=== PATIENT | male | born 1990 | race African-American/Black ===

== ENCOUNTER 2022-03-24 11:29 | Inpatient (IN) | payer MEDICAID ==
[2022-03-24] VITALS (19 sets, daily range): BP systolic 90–121; BP diastolic 50–83
[~2022-03-24] VITALS: Ht 165.1 cm; Wt 61.0 kg
[2022-03-24 12:41] LABS: CHLORIDE 110 mEq/L (98-107)
[2022-03-24 12:48] LABS: BASOPHILS % 0.4 % (0.0-2.0); EOSINOPHILS % 2.6 % (0.0-5.0); MEAN CORPUSCULAR HEMOGLOBIN 29.2 pg (28.0-32.0); MEAN PLATELET VOLUME 8.4 fl (7.4-10.4); MONOCYTES % 6.8 % (2.0-8.0); NEUTROPHILS % 77.2 % (40.0-76.0); PLATELET 221 x1000/uL (130-400); RED BLOOD CELL COUNT 7.25 mill/uL (4.7-6.1); RED CELL DISTRIBUTION WIDTH 16.5 % (11.6-14.6)
[2022-03-24 12:52] LABS: HEMATOCRIT. 66.7 % (42.0-52.0); HEMOGLOBIN. 21.2 g/dL (14.0-18.0)
[2022-03-24 13:14] LABS: ETHANOL BLOOD 190 mg/dL
[2022-03-24 13:41] LABS: BG BASE EXCESS -4.2 mmol/L (-2.0-2.0); BG CARBOXYHEMOGLOBIN 0.4 % (0.5-1.5); BG DEOXYHEMOGLOBIN 5.6 % (0.0-5.0); BG FRACTION INSPIRED OXYGEN 80; BG HCO3 ACT 21.4 mmol/L (22.0-26.0); BG METHEMOGLOBIN 0.6 % (0.0-1.5); BG OXYGEN SATURATION 94.3 % (92.0-98.5); BG OXYHEMOGLOBIN 93.4 % (94.0-97.0); BG PCO2 41.2 mmHg (35.0-45.0); BG PH 7.333 (7.350-7.450); BG PO2 81.3 mmHg (75.0-100.0); BG SAMPLE SITE RIGHT BRACHIAL; BG TOTAL HEMOGLOBIN 19.6 g/dL (12.0-18.0); BG TOTAL RESPIRATORY RATE 35 b/min; BG VENT MODE MASK - BIPAP
[2022-03-24] MEDS ORDERED: IOHEXOL-350 100 ML BOTTLE ONE (14:16)
[2022-03-24] MEDS ORDERED: AZITHROMYCIN 500MG/250ML 250 ML IV ONE (15:15)
[2022-03-24] MEDS ORDERED: CHLORDIAZEPOXIDE 25MG CAPSULE PO ONE (15:15)
[2022-03-24] MEDS ORDERED: CEFTRIAXONE 1 G PREMIX 50 ML IV ONE (15:15)
[2022-03-24] MEDS ORDERED: MORPHINE SULFATE 2 MG/ML CPJ (NOT FOR IM USE) IV PRN (19:30)
[2022-03-24] MEDS ORDERED: DIPHENHYDRAMINE 50MG/ML VIAL IV PRN (19:30)
[2022-03-24] MEDS ORDERED: ALBUTEROL 6.7GM HFA INHALER ORI PRN (19:30)
[2022-03-24] MEDS ORDERED: LORAZEPAM 2MG/ML CPJ IV PRN (19:30)
[2022-03-24] MEDS ORDERED: GUAIFENESIN 200MG/10ML SUGAR FREE UDC PO PRN (19:30)
[2022-03-24] MEDS ORDERED: HYDROCODONE/ACETAMINOPHEN 5/325MG TABLET PO PRN (19:30)
[2022-03-24] MEDS ORDERED: DOCUSATE SODIUM 100MG CAPSULE PO PRN (19:30)
[2022-03-24] MEDS ORDERED: CLONIDINE 0.1MG TABLET PO PRN (19:30)
[2022-03-24] MEDS ORDERED: ALBUTEROL (0.083%) 2.5MG/3ML NEB HHN PRN (19:30)
[2022-03-24] MEDS ORDERED: ACETAMINOPHEN 325MG TABLET PO PRN (19:30)
[2022-03-24] MEDS ORDERED: MAGNESIUM/ALUMINUM HYDROXIDE/SIMETHICONE 30ML UDC PO PRN (19:30)
[2022-03-24] MEDS: ENOXAPARIN 40MG/0.4ML SYR SUBCUT SCH (20:00)
[2022-03-24] MEDS: ONDANSETRON HCL 4MG/2ML INJ IV PRN (20:32)
[2022-03-24 21:23] LABS: HEMATOCRIT. 53.2 % (42.0-52.0); MEAN CORPUSCULAR HEMOGLOBIN 29.5 pg (28.0-32.0); MEAN CORPUSCULAR VOLUME 92.3 fL (80.0-94.0); MEAN PLATELET VOLUME 8.3 fl (7.4-10.4); PLATELET 198 x1000/uL (130-400); RED BLOOD CELL COUNT 5.76 mill/uL (4.7-6.1); RED CELL DISTRIBUTION WIDTH 15.9 % (11.6-14.6)
[2022-03-24 21:58] LABS: PLATELET ESTIMATE NORMAL
[2022-03-24] MEDS ORDERED: SODIUM CHLORIDE 0.9% INJ 3ML FLUSH IVF SCH (22:00)
[2022-03-24] MEDS ORDERED: RIVA10TA PO (22:20)
[2022-03-25] VITALS (47 sets, daily range): BP systolic 88–142; BP diastolic 39–96
[2022-03-25] MEDS: ONDANSETRON HCL 4MG/2ML INJ IV PRN ×2 (02:45→12:57)
[2022-03-25 04:27] LABS: BASOPHILS % 0.4 % (0.0-2.0); EOSINOPHILS % 0.7 % (0.0-5.0); HEMATOCRIT. 50.3 % (42.0-52.0); HEMOGLOBIN. 16.6 g/dL (14.0-18.0); LYMPHOCYTES % 7.4 % (20.0-50.0); MEAN CORPUSCULAR HEMOGLOBIN 29.7 pg (28.0-32.0); MEAN CORPUSCULAR VOLUME 90.3 fL (80.0-94.0); MONOCYTES % 8.5 % (2.0-8.0); PLATELET 179 x1000/uL (130-400); RED BLOOD CELL COUNT 5.57 mill/uL (4.7-6.1); RED CELL DISTRIBUTION WIDTH 15.6 % (11.6-14.6)
[2022-03-25 04:36] LABS: CHLORIDE 107 mEq/L (98-107)
[2022-03-25] MEDS ORDERED: CEFTRIAXONE 1 G PREMIX 50 ML IV SCH (09:00)
[2022-03-25] MEDS: AZITHROMYCIN 500 MG in DEXT 5% WATER 250 ML IV SCH (09:25)
[2022-03-25] MEDS: CEFTRIAXONE 1,000 MG in DEXTROSE 5% WATER 50 ML IV SCH (09:25)
[2022-03-25] MEDS: PREDNISONE 10MG TABLET PO SCH (15:51)
[2022-03-25] MEDS: IPRATROPIUM/ALBUTEROL 0.5-3(2.5)MG/3ML NEB HHN SCH (20:48)
[2022-03-25] MEDS: ASPIRIN 81MG EC TABLET PO SCH (20:55)
[2022-03-25] MEDS: ENOXAPARIN 40MG/0.4ML SYR SUBCUT SCH (20:55)
[2022-03-26] VITALS (31 sets, daily range): BP systolic 75–128; BP diastolic 41–72
[2022-03-26] MEDS: IPRATROPIUM/ALBUTEROL 0.5-3(2.5)MG/3ML NEB HHN SCH ×4 (08:10→20:15)
[2022-03-26] MEDS ORDERED: NALOXONE HCL 0.4MG/ML VIAL IV PRN (08:30)
[2022-03-26] MEDS: CEFTRIAXONE 1,000 MG in DEXTROSE 5% WATER 50 ML IV SCH (08:32)
[2022-03-26] MEDS: PREDNISONE 10MG TABLET PO SCH (08:33)
[2022-03-26] MEDS: ASPIRIN 81MG EC TABLET PO SCH (08:33)
[2022-03-26] MEDS: AZITHROMYCIN 500 MG in DEXT 5% WATER 250 ML IV SCH (08:33)
[2022-03-26] MEDS: FUROSEMIDE 40MG/4ML VIAL IVP SCH (12:27)
[2022-03-26] MEDS: METHYLPREDNISOLONE SOD SUCC 40 MG/ML VIAL IV SCH ×2 (12:27→20:19)
[2022-03-26] MEDS: ENOXAPARIN 40MG/0.4ML SYR SUBCUT SCH (20:11)
[2022-03-26] MEDS: FAMOTIDINE 20MG TABLET PO SCH (20:18)
[2022-03-26] MEDS: MONTELUKAST SODIUM 10MG TABLET PO SCH (20:18)
[2022-03-27] VITALS (12 sets, daily range): BP systolic 106–126; BP diastolic 40–74
[2022-03-27] MEDS: IPRATROPIUM/ALBUTEROL 0.5-3(2.5)MG/3ML NEB HHN SCH ×4 (00:19→21:29)
[2022-03-27] MEDS: METHYLPREDNISOLONE SOD SUCC 40 MG/ML VIAL IV SCH ×3 (05:29→21:08)
[2022-03-27] MEDS: FAMOTIDINE 20MG TABLET PO SCH ×2 (08:42→21:08)
[2022-03-27] MEDS: ASPIRIN 81MG EC TABLET PO SCH (08:42)
[2022-03-27] MEDS: CEFTRIAXONE 1,000 MG in DEXTROSE 5% WATER 50 ML IV SCH (08:42)
[2022-03-27] MEDS: FUROSEMIDE 40MG/4ML VIAL IVP SCH (08:43)
[2022-03-27] MEDS: AZITHROMYCIN 500 MG in DEXT 5% WATER 250 ML IV SCH (09:36)
[2022-03-27 12:41] LABS: HEMATOCRIT 51.7 % (42.0-52.0); HEMOGLOBIN 16.8 g/dL (14.0-18.0); MEAN CORPUSCULAR VOLUME 90.7 fL (80.0-94.0)
[2022-03-27 12:42] LABS: MEAN CORPUSCULAR HEMOGLOBIN 29.4 pg (28.0-32.0); PLATELET 212 x1000/uL (130-400)
[2022-03-27 12:54] LABS: CHLORIDE 101 mEq/L (98-107)
[2022-03-27 14:33] LABS: BG BASE EXCESS 2.3 mmol/L (-2.0-2.0); BG CARBOXYHEMOGLOBIN 0.2 % (0.5-1.5); BG DEOXYHEMOGLOBIN 13.5 % (0.0-5.0); BG FRACTION INSPIRED OXYGEN 21; BG HCO3 ACT 26.6 mmol/L (22.0-26.0); BG METHEMOGLOBIN 0.3 % (0.0-1.5); BG OXYGEN SATURATION 86.4 % (92.0-98.5); BG PCO2 39.9 mmHg (35.0-45.0); BG PH 7.441 (7.350-7.450); BG PO2 48.5 mmHg (75.0-100.0); BG SAMPLE SITE RIGHT RADIAL; BG TOTAL HEMOGLOBIN 19.1 g/dL (12.0-18.0); BG VENT MODE ROOM AIR
[2022-03-27] MEDS: MONTELUKAST SODIUM 10MG TABLET PO SCH (21:08)
[2022-03-27] MEDS: ENOXAPARIN 40MG/0.4ML SYR SUBCUT SCH (21:08)
[2022-03-28] VITALS (11 sets, daily range): BP systolic 95–159; BP diastolic 36–98
[2022-03-28] MEDS: IPRATROPIUM/ALBUTEROL 0.5-3(2.5)MG/3ML NEB HHN SCH ×4 (01:04→19:57)
[2022-03-28] MEDS: METHYLPREDNISOLONE SOD SUCC 40 MG/ML VIAL IV SCH ×2 (05:50→14:37)
[2022-03-28] MEDS: CEFTRIAXONE 1,000 MG in DEXTROSE 5% WATER 50 ML IV SCH (08:36)
[2022-03-28] MEDS: FAMOTIDINE 20MG TABLET PO SCH ×2 (08:36→21:54)
[2022-03-28] MEDS: FUROSEMIDE 40MG/4ML VIAL IVP SCH (08:36)
[2022-03-28] MEDS: ASPIRIN 81MG EC TABLET PO SCH (08:36)
[2022-03-28] MEDS: AZITHROMYCIN 500 MG in DEXT 5% WATER 250 ML IV SCH (10:05)
[2022-03-28] MEDS: MONTELUKAST SODIUM 10MG TABLET PO SCH (21:54)
[2022-03-28] MEDS: ENOXAPARIN 40MG/0.4ML SYR SUBCUT SCH (21:57)
[2022-03-29] VITALS (9 sets, daily range): BP systolic 103–135; BP diastolic 58–107
[2022-03-29] MEDS: IPRATROPIUM/ALBUTEROL 0.5-3(2.5)MG/3ML NEB HHN SCH ×2 (01:17→08:48)
[2022-03-29] MEDS: FAMOTIDINE 20MG TABLET PO SCH (09:00)
[2022-03-29] MEDS: FUROSEMIDE 40MG/4ML VIAL IVP SCH (09:00)
[2022-03-29] MEDS ORDERED: METHYLPREDNISOLONE SOD SUCC 40 MG/ML VIAL IV SCH (09:00)
[2022-03-29] MEDS: ASPIRIN 81MG EC TABLET PO SCH (09:00)
[2022-03-29] MEDS: CEFTRIAXONE 1,000 MG in DEXTROSE 5% WATER 50 ML IV SCH (09:01)
== END 2022-03-29 14:40 | disposition home or self-care (01) | DRG 720 ==
LOC: ER 11:29 → MICUNO 15:03 → EDBEDREQ 15:07 → EDBEDREQSVC 15:07 → ENRESERV 18:09 → MICUNO 19:28 → 5EST 03-26 11:55
PROVIDERS: ADMIT Internal Medicine; ATTEND Internal Medicine
PROC: 5A09357 Assistance with Respiratory Ventilation, Less than 24 Consecutive Hours, Continuous Positive Airway Pressure (ICD-10-PCS; principal; 2022-03-24)
DX: A41.9 Sepsis, unspecified organism (principal); J96.01 Acute respiratory failure with hypoxia; J69.0 Pneumonitis due to inhalation of food and vomit; E44.0 Moderate protein-calorie malnutrition; J44.0 Chronic obstructive pulmonary disease with (acute) lower respiratory infection; J45.901 Unspecified asthma with (acute) exacerbation; I11.0 Hypertensive heart disease with heart failure; I50.9 Heart failure, unspecified; Z20.822 Contact with and (suspected) exposure to COVID-19; E86.0 Dehydration; F10.129 Alcohol abuse with intoxication, unspecified; F17.210 Nicotine dependence, cigarettes, uncomplicated; F12.10 Cannabis abuse, uncomplicated; E80.6 Other disorders of bilirubin metabolism; Z68.22 Body mass index [BMI] 22.0-22.9, adult; Z79.01 Long term (current) use of anticoagulants; Z86.711 Personal history of pulmonary embolism
CPT/HCPCS: 36415; 36600; 71045; 71275; 76700; 80048; 80053; 80320; 82375; 82805; 83605; 83880; 84484; 85025; 85027; 85379; 87426; 93005; 93306; 94640; 94660; 99291; J0456; J0696; J1200; J1650; J1940; J2405; J2920; J7060; J7512; Q9967; G0480

== ENCOUNTER 2022-05-03 11:19 | Inpatient (IN) | payer MEDICAID, OTHER ==
[~2022-05-03] VITALS: Ht 175.3 cm; Wt 63.5 kg
[2022-05-03] MEDS ORDERED: IPRATROPIUM BROMIDE (0.02%) 0.5MG/2.5ML NEB HHN STA (11:40)
[2022-05-03] MEDS ORDERED: METHYLPREDNISOLONE SOD SUCC 125 MG/2 ML VIAL IV STA (11:40)
[2022-05-03] MEDS: ALBUTEROL (0.083%) 2.5MG/3ML NEB HHN SCH ×3 (12:30→13:00)
[2022-05-03 12:56] LABS: BASOPHILS % 0.3 % (0.0-2.0); EOSINOPHILS % 0.3 % (0.0-5.0); HEMATOCRIT. 53.5 % (42.0-52.0); HEMOGLOBIN. 17.4 g/dL (14.0-18.0); LYMPHOCYTES % 7.7 % (20.0-50.0); MEAN CORPUSCULAR HEMOGLOBIN 28.6 pg (28.0-32.0); MEAN CORPUSCULAR VOLUME 87.9 fL (80.0-94.0); MEAN PLATELET VOLUME 8.2 fl (7.4-10.4); MONOCYTES % 5.5 % (2.0-8.0); NEUTROPHILS % 86.2 % (40.0-76.0); PLATELET 273 x1000/uL (130-400); RED BLOOD CELL COUNT 6.08 mill/uL (4.7-6.1); RED CELL DISTRIBUTION WIDTH 14.6 % (11.6-14.6)
[2022-05-03 13:01] LABS: CHLORIDE 109 mEq/L (98-107)
[2022-05-03 15:00] VITALS: BP 100/68
[2022-05-03] MEDS ORDERED: IPRATROPIUM/ALBUTEROL 0.5-3(2.5)MG/3ML NEB HHN PRN (15:30)
[2022-05-03] MEDS ORDERED: METHYLPREDNISOLONE SOD SUCC 125 MG/2 ML VIAL IV SCH (15:30)
[2022-05-03] MEDS ORDERED: ACETAMINOPHEN 325MG TABLET PO PRN (15:30)
[2022-05-03] MEDS ORDERED: ONDANSETRON HCL 4MG/2ML INJ IV PRN (15:30)
[2022-05-03] MEDS ORDERED: CLONIDINE 0.1MG TABLET PO PRN (15:30)
[2022-05-03] MEDS ORDERED: DIPHENHYDRAMINE 50MG/ML VIAL IV PRN (15:30)
[2022-05-03 16:00] VITALS: BP 103/74
[2022-05-03] MEDS ORDERED: ENOXAPARIN 40MG/0.4ML SYR SUBCUT SCH (16:00)
[2022-05-03] MEDS: METHYLPREDNISOLONE SOD SUCC 125 MG/2 ML VIAL IV SCH ×2 (18:00→23:22)
[2022-05-03 20:00] VITALS: BP 121/101
[2022-05-04] VITALS: BP 106/73
[2022-05-04 04:00] VITALS: BP 110/68
[2022-05-04] MEDS: METHYLPREDNISOLONE SOD SUCC 125 MG/2 ML VIAL IV SCH ×2 (05:06→12:37)
[2022-05-04 07:53] LABS: BASOPHILS % 0.5 % (0.0-2.0); HEMATOCRIT. 52.6 % (42.0-52.0); HEMOGLOBIN. 16.9 g/dL (14.0-18.0); LYMPHOCYTES % 12.3 % (20.0-50.0); MEAN CORPUSCULAR HEMOGLOBIN 28.5 pg (28.0-32.0); MEAN CORPUSCULAR VOLUME 88.5 fL (80.0-94.0); MEAN PLATELET VOLUME 8.6 fl (7.4-10.4); MONOCYTES % 2.1 % (2.0-8.0); NEUTROPHILS % 85.1 % (40.0-76.0); PLATELET 312 x1000/uL (130-400); RED BLOOD CELL COUNT 5.95 mill/uL (4.7-6.1); RED CELL DISTRIBUTION WIDTH 14.5 % (11.6-14.6)
[2022-05-04 08:00] VITALS: BP 100/67
[2022-05-04 08:05] LABS: CHLORIDE 101 mEq/L (98-107)
[2022-05-04 12:00] VITALS: BP 110/41
[2022-05-04] MEDS ORDERED: LORATADINE 10MG TABLET PO SCH (13:00)
[2022-05-04] MEDS ORDERED: ALBU18HF2 IH (15:27)
[2022-05-04] MEDS ORDERED: PULM25 NEB (15:27)
[2022-05-04] MEDS ORDERED: MONT10TA21 PO (15:27)
[2022-05-04] MEDS ORDERED: FAMO20TA8 MT (15:27)
[2022-05-04] MEDS ORDERED: CLAR10 PO (15:27)
[2022-05-04] MEDS ORDERED: P20 MT (15:27)
[2022-05-04] MEDS ORDERED: IPRA3AMP9 NEB (15:27)
[2022-05-04 16:00] VITALS: BP 115/80
[2022-05-04 16:07] VITALS: BP 115/80
[2022-05-04] MEDS ORDERED: MONTELUKAST SODIUM 10MG TABLET PO SCH (17:00)
[2022-05-04] MEDS ORDERED: FAMOTIDINE 20MG/2ML VIAL IV SCH (21:00)
== END 2022-05-04 18:45 | disposition home or self-care (01) | DRG 141 ==
LOC: ER 12:51 → ENRESERV 13:47 → 6EST 14:33 → EDBEDREQ 14:37 → EDBEDREQTM 14:37
PROVIDERS: ADMIT Internal Medicine; ATTEND Internal Medicine
DX: J45.901 Unspecified asthma with (acute) exacerbation (principal); J96.21 Acute and chronic respiratory failure with hypoxia; E44.0 Moderate protein-calorie malnutrition; J84.9 Interstitial pulmonary disease, unspecified; J44.1 Chronic obstructive pulmonary disease with (acute) exacerbation; K70.9 Alcoholic liver disease, unspecified; I10 Essential (primary) hypertension; Z60.2 Problems related to living alone; F10.20 Alcohol dependence, uncomplicated; F12.10 Cannabis abuse, uncomplicated; F17.210 Nicotine dependence, cigarettes, uncomplicated; Z28.310 Unvaccinated for COVID-19; Z86.711 Personal history of pulmonary embolism; Z68.20 Body mass index [BMI] 20.0-20.9, adult; Z79.899 Other long term (current) drug therapy; Z71.41 Alcohol abuse counseling and surveillance of alcoholic; Z71.51 Drug abuse counseling and surveillance of drug abuser; Z71.6 Tobacco abuse counseling
CPT/HCPCS: 36415; 71045; 80053; 83880; 84484; 85025; 93005; 93970; 94640; 99285; J1650; J2930